=== PATIENT | female | born 1980 | race African-American/Black ===

== ENCOUNTER 2021-04-02 21:15 | Emergency (ER) | payer MEDICAID, OTHER ==
[~2021-04-02] VITALS: Ht 167.6 cm; Wt 100.0 kg
[2021-04-02 22:32] LABS: CLARITY URINE TURBID (CLEAR); COLOR URINE DARK YELLOW (YELLOW); KETONES URINE 2+ (NEGATIVE); LEUKOCYTE ESTERASE URINE NEGATIVE (NEGATIVE); NITRITE URINE NEGATIVE (NEGATIVE); OCCULT BLOOD URINE 1+ (NEGATIVE); PH URINE 5.5 (4.5-8.0); PROTEIN URINE 2+ (NEGATIVE); SPECIFIC GRAVITY URINE 1.039 (1.005-1.030)
[2021-04-02] MEDS ORDERED: ONDANSETRON HCL 4MG/2ML INJ IV STA (22:38)
[2021-04-02] MEDS ORDERED: FAMOTIDINE 20MG/2ML VIAL IV STA (22:38)
[2021-04-02] MEDS ORDERED: MORPHINE SULFATE 4 MG/ML CPJ (NOT FOR IM USE) IV STA (22:38)
[2021-04-02] MEDS ORDERED: SODIUM CHLORIDE 0.9% 1,000 ML IV ONE (22:45)
[2021-04-03 00:05] LABS: BASOPHILS % 0.5 % (0.0-2.0); HEMATOCRIT. 38.5 % (36.0-48.0); HEMOGLOBIN. 13.3 g/dL (12.0-16.0); LYMPHOCYTES % 11.5 % (20.0-50.0); MEAN CORPUSCULAR HEMOGLOBIN 30.7 pg (28.0-32.0); MEAN CORPUSCULAR VOLUME 89.3 fL (81.0-99.0); MEAN PLATELET VOLUME 7.8 fl (7.4-10.4); MONOCYTES % 5.8 % (2.0-8.0); NEUTROPHILS % 82.2 % (40.0-76.0); PLATELET 378 x1000/uL (130-400); RED BLOOD CELL COUNT 4.32 mill/uL (4.2-5.4); RED CELL DISTRIBUTION WIDTH 14.7 % (11.6-14.6)
[2021-04-03 00:10] LABS: CHLORIDE 104 mEq/L (98-107)
[2021-04-03 00:15] LABS: HCG SCREEN NEGATIVE
[2021-04-03] MEDS ORDERED: POTASSIUM CHLORIDE 20MEQ TABLET SR PO ONE (00:30)
[2021-04-03] MEDS ORDERED: ONDA4TAB5 MT (01:08)
[2021-04-03 02:20] VITALS: BP 124/76
== END 2021-04-03 02:30 | disposition home or self-care (01) ==
LOC: ER 21:15
DX: R11.2 Nausea with vomiting, unspecified (principal); R19.7 Diarrhea, unspecified; E87.6 Hypokalemia
CPT/HCPCS: 36415; 80053; 81003; 81025; 83690; 84703; 85025; 96361; 96374; 96375; 99284; J2405; J7030

== ENCOUNTER 2022-09-21 12:47 | Inpatient (IN) | payer MEDICAID ==
[~2022-09-21] VITALS: Ht 170.2 cm; Wt 119.3 kg
[~2022-09-21 12:47] MED LIST: ONDA4TAB5 MT
[2022-09-21] MEDS ORDERED: KETOROLAC 60MG/2ML VIAL IM ONE (15:45)
[2022-09-21] MEDS ORDERED: ONDANSETRON 4MG ODT PO ONE (16:00)
[2022-09-21 16:43] LABS: BASOPHILS % 0.4 % (0.0-2.0); EOSINOPHILS % 0.2 % (0.0-5.0); HEMATOCRIT. 38.1 % (36.0-48.0); HEMOGLOBIN. 12.9 g/dL (12.0-16.0); LYMPHOCYTES % 19.2 % (20.0-50.0); MEAN CORPUSCULAR HEMOGLOBIN 30.2 pg (28.0-32.0); MEAN CORPUSCULAR VOLUME 89.3 fL (81.0-99.0); MEAN PLATELET VOLUME 7.9 fl (7.4-10.4); NEUTROPHILS % 72.2 % (40.0-76.0); PLATELET 436 x1000/uL (130-400); RED BLOOD CELL COUNT 4.27 mill/uL (4.2-5.4)
[2022-09-21 17:07] LABS: CHLORIDE 105 mEq/L (98-107)
[2022-09-21] MEDS ORDERED: POTASSIUM CHLORIDE 20MEQ TABLET SR PO ONE (18:15)
[2022-09-21 18:19] LABS: CLARITY URINE CLOUDY (CLEAR); COLOR URINE DARK YELLOW (YELLOW); KETONES URINE 4+ (NEGATIVE); LEUKOCYTE ESTERASE URINE TRACE (NEGATIVE); NITRITE URINE NEGATIVE (NEGATIVE); OCCULT BLOOD URINE 3+ (NEGATIVE); PROTEIN URINE 2+ (NEGATIVE); SPECIFIC GRAVITY URINE 1.029 (1.005-1.030)
[2022-09-21] MEDS ORDERED: NITR-87 MT (18:49)
[2022-09-21] MEDS ORDERED: IBUP-2028 MT (18:49)
[2022-09-21] MEDS ORDERED: MORPHINE SULFATE 4 MG/ML CPJ (NOT FOR IM USE) IV STA (18:57)
[2022-09-21] MEDS ORDERED: ONDANSETRON HCL 4MG/2ML INJ IV STA (18:57)
[2022-09-21] MEDS ORDERED: CEFTRIAXONE 1 G PREMIX 50 ML IV ONE (19:00)
[2022-09-21] MEDS ORDERED: SODIUM CHLORIDE 0.9% 1,000 ML IV ONE (19:00)
[2022-09-22 04:00] VITALS: BP_SYST 120; BP_DIAS 80; BP_DIAS 83
[2022-09-22] MEDS ORDERED: INFLUENZA VACCINE 05/PF 0.5 ML SYRINGE IM ONE (05:30)
[2022-09-22] MEDS ORDERED: ACETAMINOPHEN 325MG TABLET PO PRN (07:15)
[2022-09-22] MEDS ORDERED: DOCUSATE SODIUM 100MG CAPSULE PO PRN (07:15)
[2022-09-22] MEDS ORDERED: DIPHENHYDRAMINE 50MG/ML VIAL IV PRN (07:15)
[2022-09-22] MEDS ORDERED: ONDANSETRON HCL 4MG/2ML INJ IV PRN (07:15)
[2022-09-22] MEDS ORDERED: IBUPROFEN 800MG TABLET PO PRN (07:30)
[2022-09-22 08:00] VITALS: BP 115/83
[2022-09-22] MEDS ORDERED: MVI, ADULT NO.1 10 ML, FOLIC ACID 1 MG, THIAMINE HCL 100 MG in SODIUM CHLORIDE 0.9% 1,0... IV SCH ×4 (08:00)
[2022-09-22] MEDS: PIPERACILLIN/TAZOBACTAM 3.375 G in DEXTROSE 5% WATER 50 ML IV SCH ×3 (08:58→22:01)
[2022-09-22] MEDS: ACETAMINOPHEN 325MG TABLET PO PRN ×2 (08:59→15:54)
[2022-09-22] MEDS: LACTATED RINGERS 1,000 ML IV SCH ×3 (09:11→23:35)
[2022-09-22] MEDS: SODIUM CHLORIDE 0.9% INJ 3ML FLUSH IVF SCH ×2 (14:00→22:01)
[2022-09-22 16:00] VITALS: BP 117/79
[2022-09-22] MEDS ORDERED: NALOXONE HCL 0.4MG/ML VIAL IV PRN (16:30)
[2022-09-22 18:18] VITALS: BP 120/81
[2022-09-22] MEDS: HYDROMORPHONE HCL/PF 2MG/ML CPJ IV PRN (19:50)
[2022-09-22 20:00] VITALS: BP 125/75
[2022-09-23] VITALS: BP 127/68
[2022-09-23 04:25] VITALS: BP 124/75
[2022-09-23] MEDS: HYDROMORPHONE HCL/PF 2MG/ML CPJ IV PRN ×5 (04:25→20:55)
[2022-09-23] MEDS: SODIUM CHLORIDE 0.9% INJ 3ML FLUSH IVF SCH ×3 (05:33→21:02)
[2022-09-23] MEDS: PIPERACILLIN/TAZOBACTAM 3.375 G in DEXTROSE 5% WATER 50 ML IV SCH ×3 (05:34→21:02)
[2022-09-23 08:00] VITALS: BP 122/78
[2022-09-23] MEDS: LACTATED RINGERS 1,000 ML IV SCH ×3 (08:19→23:18)
[2022-09-23 12:00] VITALS: BP 123/83
[2022-09-23 16:00] VITALS: BP 123/63
[2022-09-23 20:00] VITALS: BP 124/77
[2022-09-23 21:49] LABS: BASOPHILS % 0.3 % (0.0-2.0); EOSINOPHILS % 0.1 % (0.0-5.0); HEMATOCRIT. 32.7 % (36.0-48.0); HEMOGLOBIN. 10.9 g/dL (12.0-16.0); LYMPHOCYTES % 10.1 % (20.0-50.0); MEAN CORPUSCULAR HEMOGLOBIN 29.9 pg (28.0-32.0); MEAN CORPUSCULAR VOLUME 89.8 fL (81.0-99.0); MEAN PLATELET VOLUME 7.5 fl (7.4-10.4); MONOCYTES % 6.2 % (2.0-8.0); NEUTROPHILS % 83.3 % (40.0-76.0); PLATELET 387 x1000/uL (130-400); RED BLOOD CELL COUNT 3.65 mill/uL (4.2-5.4); RED CELL DISTRIBUTION WIDTH 14.8 % (11.6-14.6)
[2022-09-24] VITALS: BP 120/75
[2022-09-24 04:00] VITALS: BP 117/73
[2022-09-24] MEDS: ACETAMINOPHEN WITH CODEINE 300/30MG TABLET PO PRN ×2 (04:32→19:51)
[2022-09-24] MEDS: SODIUM CHLORIDE 0.9% INJ 3ML FLUSH IVF SCH ×3 (05:24→22:32)
[2022-09-24] MEDS: PIPERACILLIN/TAZOBACTAM 3.375 G in DEXTROSE 5% WATER 50 ML IV SCH ×3 (05:24→21:18)
[2022-09-24 08:00] VITALS: BP 138/82
[2022-09-24] MEDS: LACTATED RINGERS 1,000 ML IV SCH ×3 (08:14→23:38)
[2022-09-24 12:00] VITALS: BP 133/79
[2022-09-24] MEDS: ACETAMINOPHEN 325MG TABLET PO PRN (12:02)
[2022-09-24 16:00] VITALS: BP 130/76
[2022-09-24 20:00] VITALS: BP 123/82
[2022-09-24] MEDS: ZOLPIDEM TARTRATE 5MG TABLET PO PRN (21:19)
[2022-09-25 04:00] VITALS: BP 124/84
[2022-09-25] MEDS: SODIUM CHLORIDE 0.9% INJ 3ML FLUSH IVF SCH ×3 (05:28→22:00)
[2022-09-25] MEDS: PIPERACILLIN/TAZOBACTAM 3.375 G in DEXTROSE 5% WATER 50 ML IV SCH ×3 (05:28→22:00)
[2022-09-25] MEDS: ACETAMINOPHEN WITH CODEINE 300/30MG TABLET PO PRN ×4 (05:28→19:55)
[2022-09-25] MEDS: LACTATED RINGERS 1,000 ML IV SCH ×2 (06:50→15:30)
[2022-09-25 08:00] VITALS: BP 129/87
[2022-09-25 09:25] LABS: BASOPHILS % 0.4 % (0.0-2.0); EOSINOPHILS % 0.6 % (0.0-5.0); HEMATOCRIT. 31.6 % (36.0-48.0); HEMOGLOBIN. 10.6 g/dL (12.0-16.0); LYMPHOCYTES % 14.4 % (20.0-50.0); MEAN CORPUSCULAR HEMOGLOBIN 29.9 pg (28.0-32.0); MEAN CORPUSCULAR VOLUME 89.7 fL (81.0-99.0); MONOCYTES % 6.5 % (2.0-8.0); NEUTROPHILS % 78.1 % (40.0-76.0); PLATELET 401 x1000/uL (130-400); RED BLOOD CELL COUNT 3.53 mill/uL (4.2-5.4); RED CELL DISTRIBUTION WIDTH 14.9 % (11.6-14.6)
[2022-09-25 09:53] LABS: CHLORIDE 104 mEq/L (98-107)
[2022-09-25] MEDS ORDERED: POTASSIUM ACETATE IV SCH (17:38)
[2022-09-25] MEDS ORDERED: LACTATED RINGERS IV SCH (17:38)
[2022-09-25 20:00] VITALS: BP 120/78
[2022-09-25] MEDS ORDERED: POTASSIUM CHLORIDE INJ 40 MEQ in LACTATED RINGERS 1,000 ML IV ONE (20:00)
[2022-09-25] MEDS: ZOLPIDEM TARTRATE 5MG TABLET PO PRN (22:14)
[2022-09-26] MEDS: SODIUM CHLORIDE 0.9% INJ 3ML FLUSH IVF SCH ×3 (06:18→22:00)
[2022-09-26] MEDS: PIPERACILLIN/TAZOBACTAM 3.375 G in DEXTROSE 5% WATER 50 ML IV SCH ×3 (06:18→21:39)
[2022-09-26] MEDS: ACETAMINOPHEN 325MG TABLET PO PRN (06:29)
[2022-09-26 20:52] LABS: CHLORIDE 104 mEq/L (98-107)
[2022-09-27] MEDS ORDERED: IBUP-2030 PO (04:59)
[2022-09-27] MEDS: SODIUM CHLORIDE 0.9% INJ 3ML FLUSH IVF SCH (06:27)
[2022-09-27 08:00] VITALS: BP 117/77
== END 2022-09-27 13:30 | disposition home or self-care (01) | DRG 532 ==
LOC: ER 12:47 → MICUSO 19:00 → 6EST 09-22 04:33
PROVIDERS: ADMIT Obstetrics & Gynecology; ATTEND Obstetrics & Gynecology
DX: D25.9 Leiomyoma of uterus, unspecified (principal); K59.00 Constipation, unspecified; N83.202 Unspecified ovarian cyst, left side; Z20.822 Contact with and (suspected) exposure to COVID-19
CPT/HCPCS: 36415; 74176; 76830; 76856; 80048; 80053; 81003; 85025; 87426; 93976; 99285; J0696; J1170; J1885; J2270; J2405; J2543; J3411; J3480; J3490; J7030; J7060; J7120; Q0162

== ENCOUNTER 2024-02-15 23:39 | Emergency (ER) | payer OTHER ==
[~2024-02-15] VITALS: Ht 167.6 cm; Wt 100.0 kg
[~2024-02-15 23:39] MED LIST changes: +IBUP-2028 MT; +IBUP-2030 PO; -ONDA4TAB5 MT
[2024-02-15 23:53] VITALS: TEMP 98.7; O2SAT 99
[2024-02-16 00:47] LABS: CLARITY URINE CLEAR (CLEAR); COLOR URINE YELLOW (YELLOW); GLUCOSE URINE NEGATIVE (NEGATIVE); KETONES URINE NEGATIVE (NEGATIVE); LEUKOCYTE ESTERASE URINE NEGATIVE (NEGATIVE); NITRITE URINE NEGATIVE (NEGATIVE); OCCULT BLOOD URINE TRACE (NEGATIVE); PROTEIN URINE NEGATIVE (NEGATIVE); SPECIFIC GRAVITY URINE 1.019 (1.005-1.030); UROBILINOGEN URINE 0.2 E.U./dL (0.2-1.0)
[2024-02-16 01:16] LABS: BACTERIA URINE NONE SEEN; RBC URINE 0-2 /hpf (0-2); SQUAMOUS EPITHELIAL CELL URINE NONE SEEN /lpf (RARE/1+); WBC URINE NONE SEEN /hpf (0-2)
[2024-02-16 01:29] LABS: BASOPHILS % 1.1 % (0.0-2.0); HEMATOCRIT. 37.7 % (36.0-48.0); HEMOGLOBIN. 12.5 g/dL (12.0-16.0); LYMPHOCYTES % 18.7 % (20.0-50.0); MEAN CORPUSCULAR HEMOGLOBIN 30.1 pg (28.0-32.0); MEAN CORPUSCULAR HGB CONC 33.2 g/dL (31.0-37.0); MEAN CORPUSCULAR VOLUME 90.6 fL (81.0-99.0); MEAN PLATELET VOLUME 7.9 fl (7.4-10.4); MONOCYTES % 7.4 % (2.0-8.0); NEUTROPHILS % 70.8 % (40.0-76.0); PLATELET 278 x1000/uL (130-400); RED BLOOD CELL COUNT 4.16 mill/uL (4.2-5.4); RED CELL DISTRIBUTION WIDTH 17.9 % (11.6-14.6); WHITE BLOOD COUNT 7.1 x1000/uL (4.5-11.0)
[2024-02-16 01:39] LABS: CARBON DIOXIDE 25 mEq/L (21-32); CHLORIDE 107 mEq/L (98-107); POTASSIUM 3.9 mEq/L (3.5-5.1); SODIUM 137 mEq/L (136-145)
[2024-02-16 01:40] LABS: CALCIUM 8.3 mg/dL (8.7-10.4)
[2024-02-16 01:45] LABS: CREATININE 0.7 mg/dL (0.6-1.0); GLUCOSE 110 mg/dL (70-105); UREA NITROGEN BLOOD 11 mg/dL (9-23)
[2024-02-16 01:46] LABS: ALANINE AMINOTRANSFERASE 14 IU/L (10-49)
[2024-02-16 01:47] LABS: ASPARTATE AMINOTRANSFERASE 17 IU/L (<34); BILIRUBIN TOTAL 0.2 mg/dL (0.1-1.0); PROTEIN TOTAL 6.6 g/dL (6.0-8.3)
[2024-02-16] MEDS: ONDANSETRON HCL 4MG/2ML INJ IV ONE (02:50)
[2024-02-16 03:01] VITALS: BP 128/83; PULSE 80; RESP 16
[2024-02-16] MEDS: SODIUM CHLORIDE 0.9% 1,000 ML IV ONE (03:01)
[2024-02-16] MEDS: KETOROLAC 15MG/ML VIAL IV ONE (03:01)
[2024-02-16] MEDS: ONDANSETRON 4MG ODT PO ONE (03:02)
[2024-02-16] MEDS ORDERED: ONDA4TAB50 MT (04:58)
[2024-02-16] MEDS ORDERED: NAPR275T96 MT (04:58)
== END 2024-02-16 05:27 | disposition home or self-care (01) ==
LOC: ER 23:39
DX: K80.20 Calculus of gallbladder without cholecystitis without obstruction (principal)
CPT/HCPCS: 81025; 99285; 80053; 81003; 85025; 36415; 74176; 76700; 96361; 96374; 96375; Q0162; J1885; J2405; J7030; Z7610 ×2

== ENCOUNTER 2025-08-10 09:38 | Emergency (ER) | payer SELFPAY ==
[~2025-08-10] VITALS: Ht 170.2 cm; Wt 95.0 kg
[~2025-08-10 09:38] MED LIST changes: +NAPR275T96 MT; +ONDA4TAB50 MT
[2025-08-10 09:43] VITALS: O2SAT 99
[2025-08-10] MEDS: ACETAMINOPHEN 500MG TABLET PO ONE (10:22)
[2025-08-10] MEDS ORDERED: ACET-2708 MT (11:47)
[2025-08-10] MEDS ORDERED: LIDO700A30 TP (11:47)
[2025-08-10] MEDS: LIDOCAINE 5% PATCH TOP SCH (12:08)
[2025-08-10] MEDS: KETOROLAC 15MG/ML VIAL IM ONE (12:09)
[2025-08-10 12:28] VITALS: BP 148/80; PULSE 78; RESP 15; O2SAT 99
== END 2025-08-10 12:29 | disposition home or self-care (01) ==
LOC: ER 09:38
DX: M48.061 Spinal stenosis, lumbar region without neurogenic claudication (principal); M48.07 Spinal stenosis, lumbosacral region; Z79.899 Other long term (current) drug therapy; Z98.890 Other specified postprocedural states
CPT/HCPCS: 99285; 72131; 81025; 96372; J1885